=== PATIENT | female | born 1995 | race Caucasian/White ===

== ENCOUNTER 2023-06-03 13:48 | Emergency (ER) | payer OTHER ==
--- NOTE | 2023-06-03 14:06 | ED ---
Female Urogenital HPI - General Stated complaint: Vaginal bleeding Time Seen by Provider: 06/03/23 14:02 Source: patient, RN notes reviewed - History of Present Illness Initial comments: Quick noteis a 27-year-old female presents emergency department chief complaint of dysmenorrhea, pelvic pain and left-sided back pain. States that she has been on her menstrual cycle over the past 3 days and cycle has been more painful than normal. She denies dysuria, hematuria, increase in frequency and urgency. Patient denies chance of . States that she is not on any contraceptives. - Related Data Allergies Allergy/AdvReac Type Severity Reaction Status Date / Time No Known Allergies Allergy Verified 06/03/23 14:15 Review of Systems ROS Statement: Those systems with pertinent positive or pertinent negative responses have been documented in the HPI. ROS Other: All systems not noted in ROS Statement are negative. General Exam - General Exam Comments Initial Comments: Visual Physical Exam Vital signs reviewed General: Well-appearing, nontoxic, no acute distress. Head: Normocephalic, atraumatic Eyes: PERRLA, EOMI ENT: Airway patent Chest: Nonlabored breathing Skin: No visual rash, normal skin tone Neuro: Alert and oriented 3 Musculoskeletal: No gross abnormalities Able to determine full physical examination due to patient leaving AGAINST MEDICAL ADVICE. Course Vital Signs 06/03/23 06/03/23 14:15 17:01 Temperature 97 F L 97 F L Pulse Rate 64 64 Respiratory 18 18 Rate Blood Pressure 119/79 119/79 O2 Sat by Pulse 100 100 Oximetry Medical Decision Making - Medical Decision Making I completed the quick note portion of this chart signed Gloria Lim PA-C Unable to determine full medical course at this time due to patient leaving AGAINST MEDICAL ADVICE. Disposition Clinical Impression: Left against medical advice Disposition: LEFT AGAINST MEDICAL ADVICE Condition: Undetermined Referrals: None,Stated [Primary Care Provider] - 1-2 days
[2023-06-03 14:58] VITALS: BP 119/79; PULSE 64; RESP 18; TEMP 97
--- NOTE | 2023-06-03 16:03 | US ---
EXAMINATION TYPE: US pelvis complete transvag DATE OF EXAM: 06/03/2023 COMPARISON: NONE CLINICAL INDICATION: Female, 27 years old with history of dysmenorrhia, irregular menses; Left pelvic pain TECHNIQUE: Transvaginal ER exam Date of LMP: 05/31/2023 EXAM MEASUREMENTS: Uterus: 6.9 x 2.9 x 4.1 cm Endometrial Stripe: 0.7 cm Right Ovary: 2.7 x 2.1 x 2.5 cm Left Ovary: not seen 1. Uterus: mildly heterogeneous, multiple nabothian cyst 2. Endometrium: appears wnl 3. Right Ovary: 1.8cm dominant follicle 4. Left Ovary: not seen due to overlying bowel gas Spectral, color and waveform doppler imaging shows good arterial and venous flow within the right o vary; there is no evidence for ovarian torsion within the right ovary. 5.. Posterior cul-de-sac: wnl IMPRESSION: 1. Nonvisualization of the left ovary and adnexa secondary to bowel gas. 2. Normal uterus, endometrium and right ovary. 3. No free fluid within the cul-de-sac.
== END 2023-06-03 17:02 | disposition left against medical advice (07) ==
LOC: EC 13:48
DX: N93.9 Abnormal uterine and vaginal bleeding, unspecified (principal); Z53.29 Procedure and treatment not carried out because of patient's decision for other reasons
CPT/HCPCS: 76830; 93976; 99284

== ENCOUNTER 2023-12-03 23:48 | Emergency (ER) | payer OTHER ==
[2023-12-04] MEDS: SODIUM CHLORIDE 0.9% 1,000 ML IV STA (01:05)
[2023-12-04 01:06] LABS: Basophils % (A) 0 %; Eosinophils # (A) 0.1 k/uL (0-0.7); Eosinophils % (A) 1 %; HGB 13.5 gm/dL (11.4-16.0); Lymphocytes # (A) 3.3 k/uL (1.0-4.8); Lymphocytes % (A) 25 %; MCH 31.9 pg (25.0-35.0); MCHC 33.8 g/dL (31.0-37.0); MCV 94.4 fL (80.0-100.0); Monocytes # (A) 0.8 k/uL (0-1.0); Monocytes % (A) 6 %; Neutrophils # (A) 8.6 k/uL (1.3-7.7); Neutrophils % (A) 65 %; Platelet Count 271 k/uL (150-450); RBC 4.24 m/uL (3.80-5.40); RDW 12.1 % (11.5-15.5); WBC 13.2 k/uL (3.8-10.6)
--- NOTE | 2023-12-04 01:06 | ED ---
Abdominal Pain HPI - General Chief Complaint: Abdominal Pain Stated Complaint: Abd Pain Time Seen by Provider: 12/04/23 00:26 Source: patient Mode of arrival: ambulatory Limitations: no limitations - History of Present Illness Initial Comments: Patient is a pleasant 28-year-old female presenting today for right lower quadrant pain. 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 States that she feels "like it is pop rocks in her right lower quadrant. States she had cramps over the last week since she was on her period, and pain tonight is not similar to her usual menstrual cramps. First day of her last menstrual period was last Tuesday. States she did have darker blood than normal and had some brown vaginal discharge today but otherwise denies vaginal discharge or concerns for STIs. Endorses associated mild nausea but denies vomiting. States she does have a history of constipation to the point of requiring laxatives, last week she had such a difficult time having a bowel movement that it made her cry. Last BM today, black or bloody bowel movements. No prior abdominal surgeries. She is sexually active with a male partner. Took a test last week th at was negative. No pain medications prior to arrival however patient did attempt to smoke marijuana after the pain began that did not improve her symptoms. His dysuria urinary frequency or hematuria. Denies fevers or chills. Denies myalgias shortness of breath or chest pain. - Related Data Allergies Allergy/AdvReac Type Severity Reaction Status Date / Time No Known Allergies Allergy Verified 12/04/23 00:16 Review of Systems ROS Statement: Those systems with pertinent positive or pertinent negative responses have been documented in the HPI. ROS Other: All systems not noted in ROS Statement are negative. Past Medical History Past Medical History: No Reported History History of Any Multi-Drug Resistant Organisms: None Reported Past Surgical History: Tonsillectomy Past Psychological History: No Psychological Hx Reported Smoking Status: Never smoker Past Alcohol Use History: None Reported Past Drug Use History: Marijuana General Exam - General Exam Comments Initial Comments: PE: CONSTITUTIONAL: No apparent distress, well appearing SKIN: Warm, dry, no jaundice, hives or petechiae EYES: Pupils are equally round, extraocular movements intact without nystagmus, clear conjunctiva, non-icteric sclera HENT: Normocephalic, atraumatic, moist mucus membranes, oropharynx clear without exudates NECK: , Full range of motion, normal appearance PULMONARY: Clear to auscultation without wheezes, rhonchi, or rales, normal excursion, no accessory muscle use and no stridor CARDIOVASCULAR: Regular rate, rhythm, normal S1 and S2. No appreciated murmurs, rubs or gallops. Strong radial pulses with intact distal perfusion. No lower extremity edema GASTROINTESTINAL: Soft, active bowel sounds throughout, tenderness to palpation of the right lower quadrant, positive McBurney's point, non-distended, + rebound tenderness, guarding with palpation of the right lower quadrant, no palpable masses, . No hepatosplenomegaly GENITOURINARY: MUSCULOSKELETAL: Extremities have no gross deformity, no edema, redness, or swelling. No calf swelling NEUROLOGIC:_a/o x 3, GCS 15, normal mentation and speech. Moves all extremities x 4 without motor or sensory deficit PSYCHIATRIC:_normal mood and affect, thought process is clear and linear Limitations: no limitations Course Vital Signs 12/04/23 12/04/23 00:13 02:55 Temperature 98.0 F 97.9 F Pulse Rate 70 63 Respiratory 20 15 Rate Blood Pressure 137/80 106/59 O2 Sat by Pulse 100 99 Oximetry Medical Decision Making - Medical Decision Making Was pt. sent in by a medical professional or institution (CHIRAG Torres, HUMANITIES PROFESSOR, urgent care, hospital, or usp...) When possible be specific @ -No Did you speak to anyone other than the patient for history (EMS, parent, family, police, friend...)? What history was obtained from this source @ -No Did you review nursing and triage notes (agree or disagree)? Why? @ -I reviewed and agree with nursing and triage notes Were old charts reviewed (outside hosp., previous admission, EMS record, old EKG, old radiological studies, urgent care reports/EKG's, usp records)? Report findings @ -Medical records reviewed Differential Diagnosis (chest pain, altered mental status, abdominal pain women, abdominal pain men, vaginal bleeding, weakness, fever, dyspnea, syncope, headache, dizziness, GI bleed, back pain, seizure, CVA, palpatations, mental health, musculoskeletal)? @ -Differential Abdominal Pain Women: Appendicitis, Cholecystitis, diverticulosis, ischemic bowel, pancreatitis, hepatitis, UTI, gastroenteritis, AAA, incarcerated hernia, bowel obstruction, constipation, inflammatory bowel, hepatitis, peptic ulcer disease, splenic infarction, perforated viscus, vulvitis, ovarian torsion, PID, kidney stone, placenta abruption, this is not meant to be an all-inclusive list EKG interpreted by me (3pts min.). @ -As above X-rays interpreted by me (1pt min.). @ -None done CT interpreted by me (1pt min.). @ -None done U/S interpreted by me (1pt. min.). @ -Appendix does not appear enlarged or edematous What testing was considered but not performed or refused? (CT, X-rays, U/S, labs)? Why? @ -None What meds were considered but not given or refused? Why? @ -None Did you discuss the management of the patient with other professionals (professionals i.e. , PA, HUMANITIES PROFESSOR, lab, RT, psych nurse, adoption social worker, customer sales consultant, teacher, artillery officer, case management associate)? Give summary @ -No Was smoking cessation discussed for >3mins.? @ -No Was critical care preformed (if so, how long)? @ -No Were there social determinants of health that impacted care today? How? (Homelessness, low income, unemployed, alcoholism, drug addiction, transportation, low edu. Level, literacy, decrease access to med. care, retirement, rehab)? @ -No Was there de-escalation of care discussed even if they declined (Discuss DNR or withdrawal of care, Hospice)? @ -No What co-morbidities impacted this encounter? (DM, HTN, Smoking, COPD, CAD, Cancer, CVA, ARF, Chemo, Hep., AIDS, mental health diagnosis, sleep apnea, morb id obesity)? @ -None Was patient admitted / discharged? Hospital course, mention meds given and rout e, prescriptions, significant lab abnormalities, going to OR and other pertinent info. @ -Hospital course Patient is a pleasant 28-year-old female, previously healthy presenting for right lower quadrant pain x 1 evening. Physical exam performed significant for tenderness palpation of the right lower quadrant, positive McBurney sign, positive rebound tenderness, guarding with palpation of the right lower quadrant. + active bowel sounds. Discussed with patient plan for ultrasound pelvis and appendix. If significant lab abnormalities, pain is uncontrollable or concern for appendicitis remains after ultrasound we will consider CT abdomen pelvis with contrast. Patient is agreeable with plan. Additionally basic labs, IV fluids and pain control ordered Ultrasound showed cyst or follicle on the right ovary blood flow present to the right ovary, no evidence of torsion or free fluid. Appendix showed likely 3 mm appendix ("blind ending tubular structure likely representing the appendix" , lab significant for mild leukocytosis with blood to count 13.2. On my reassessment patient states her pain is unchanged however she is requesting to eat and would like to go home and go to sleep. She did decline pain control earlier and I again offered her pain medications however she politely declined. Updated patient to findings, including US of the appendix and that appendicits has not been completely ruled out. Discussed that CT would help further delineate signs of appendicitis however pt preferred discharge home with home monitoring of symptoms and return should symptoms persist or worsen. As US did appear to show the appendix and it did not show signs of appendicits, pt currently comfortable and wanting to go home and eat, I feel this is reasonable. Discussed with the patient signs symptoms monitor to monitor for warranting return to the emergency department. In my medical judgment there is currently no evidence of an immediate life- threatening or surgical condition. Discharge is therefore indicated at this time. Discharge treatment instructions, follow up instructions, and appropriate emergency department return precautions were discussed with the patient and/or m edical decision maker. Patient and/or medical decision maker expressed understanding of and agreed with the treatment plan, follow up instructions, and emergency department return precaution. All patient's and/or medical decision maker's questions were answered. The patient was advised that a small risk still exists that a serious condition could develop and was therefore instructed to return to the ED for any changes in symptoms, persistent symptoms, inability to obtain proper follow-up or for any further concerns. Patient received verbal and written instructions for this condition. Undiagnosed new problem with uncertain prognosis? @ -No Drug Therapy requiring intensive monitoring for toxicity (Heparin, Nitro, Insulin, Cardizem)? @ -No Were any procedures done? @ -No Diagnosis/symptom? @ -Right lower quadrant pain Acute, or Chronic, or Acute on Chronic? @ -Acute Uncomplicated (without systemic symptoms) or Complicated (systemic symptoms)? @ complicated Side effects of treatment? @ -No Exacerbation, Progression, or Severe Exacerbation? @ -No Poses a threat to life or bodily function? How? (Chest pain, [place], [place], pneumonia, PE, COPD, DKA, ARF, appy, cholecystitis, CVA, Diverticulitis, Homicidal, Suicidal, threat to staff... and all critical care pts) @ -Unlikely - Lab Data Result diagrams: 12/04/23 00:55 12/04/23 00:55 Lab Results 12/04/23 12/04/23 12/04/23 Range/Units 00:55 00:55 00:55 WBC 13.2 H (3.8-10.6) k/uL RBC 4.24 (3.80-5.40) m/uL Hgb 13.5 (11.4-16.0) gm/dL Hct 40.0 (34.0-46.0) % MCV 94.4 (80.0-100.0) fL MCH 31.9 (25.0-35.0) pg MCHC 33.8 (31.0-37.0) g/dL RDW 12.1 (11.5-15.5) % Plt Count 271 (150-450) k/uL MPV 7.0 Neutrophils % 65 % Lymphocytes % 25 % Monocytes % 6 % Eosinophils % 1 % Basophils % 0 % Neutrophils # 8.6 H (1.3-7.7) k/uL Lymphocytes # 3.3 (1.0-4.8) k/uL Monocytes # 0.8 (0-1.0) k/uL Eosinophils # 0.1 (0-0.7) k/uL Basophils # 0.0 (0-0.2) k/uL Sodium 138 (137-145) mmol/L Potassium 3.9 (3.5-5.1) mmol/L Chloride 106 (98-107) mmol/L Carbon Dioxide 23 (22-30) mmol/L Anion Gap 9 mmol/L BUN 10 (7-17) mg/dL Creatinine 0.72 (0.52-1.04) mg/dL Est GFR (CKD-EPI)AfAm >90 (>60 ml/min/1.73 sqM) Est GFR (CKD-EPI)NonAf >90 (>60 ml/min/1.73 sqM) Glucose 88 (74-99) mg/dL Plasma Lactic Acid Tristin (0.7-2.0) mmol/L Calcium 9.9 (8.4-10.2) mg/dL Total Bilirubin 0.6 (0.2-1.3) mg/dL AST 27 (14-36) U/L ALT 17 (4-34) U/L Alkaline Phosphatase 74 (38-126) U/L Total Protein 8.1 (6.3-8.2) g/dL Albumin 5.0 (3.5-5.0) g/dL Amylase 55 (30-110) U/L Lipase 103 (23-300) U/L HCG, Quant <2.4 mIU/mL Urine Color Colorless Urine Appearance Clear (Clear) Urine pH 5.5 (5.0-8.0) Ur Specific [place] 1.004 (1.001-1.035) Urine Protein Negative (Negative) Urine Glucose (UA) Negative (Negative) Urine Ketones Negative (Negative) Urine Blood Small H (Negative) Urine Nitrite Negative (Negative) Urine Bilirubin Negative (Negative) Urine Urobilinogen <2.0 (<2.0) mg/dL Ur Leukocyte Esterase Negative (Negative) Urine RBC <1 (0-5) /hpf Urine WBC 1 (0-5) /hpf Ur Squamous Epith Cells 1 (0-4) /hpf 12/04/23 Range/Units 00:55 WBC (3.8-10.6) k/uL RBC (3.80-5.40) m/uL Hgb (11.4-16.0) gm/dL Hct (34.0-46.0) % MCV (80.0-100.0) fL MCH (25.0-35.0) pg MCHC (31.0-37.0) g/dL RDW (11.5-15.5) % Plt Count (150-450) k/uL MPV Neutrophils % % Lymphocytes % % Monocytes % % Eosinophils % % Basophils % % Neutrophils # (1.3-7.7) k/uL Lymphocytes # (1.0-4.8) k/uL Monocytes # (0-1.0) k/uL Eosinophils # (0-0.7) k/uL Basophils # (0-0.2) k/uL Sodium (137-145) mmol/L Potassium (3.5-5.1) mmol/L Chloride (98-107) mmol/L Carbon Dioxide (22-30) mmol/L Anion Gap mmol/L BUN (7-17) mg/dL Creatinine (0.52-1.04) mg/dL Est GFR (CKD-EPI)AfAm (>60 ml/min/1.73 sqM) Est GFR (CKD-EPI)NonAf (>60 ml/min/1.73 sqM) Glucose (74-99) mg/dL Plasma Lactic Acid [place]ist[place] 0.6 L (0.7-2.0) mmol/L Calcium (8.4-10.2) mg/dL Total Bilirubin (0.2-1.3) mg/dL AST (14-36) U/L ALT (4-34) U/L Alkaline Phosphatase (38-126) U/L Total Protein (6.3-8.2) g/dL Albumin (3.5-5.0) g/dL Amylase (30-110) U/L Lipase (23-300) U/L HCG, Quant mIU/mL Urine Color Urine Appearance (Clear) Urine pH (5.0-8.0) Ur Specific [place] (1.001-1.035) Urine Protein (Negative) Urine Glucose (UA) (Negative) Urine Ketones (Negative) Urine Blood (Negative) Urine Nitrite (Negative) Urine Bilirubin (Negative) Urine Urobilinogen (<2.0) mg/dL Ur Leukocyte Esterase (Negative) Urine RBC (0-5) /hpf Urine WBC (0-5) /hpf Ur Squamous Epith Cells (0-4) /hpf Disposition Clinical Impression: Right lower quadrant pain Disposition: HOME SELF-CARE Condition: Good Instructions (If sedation given, give patient instructions): Abdominal Pain (ED) Additional Instructions: Every disease is a spectrum and a small chance still exists that a serious condition could develop, for this reason, please monitor yourself closely for new, changing or worsening symptoms, symptoms that persist beyond 48 hours, unable to control pain at home, failure pain to improve in the next 24 hours, nausea and vomiting, lightheadedness or dizziness or feeling like you are going to pass out,, fever, inability to tolerate/keep down fluids or your medications, inability to follow up with outpatient providers as instructed and should you experience these symptoms or should you have any further concerns for your wellbeing please return to the ED or call 911 immediately. PLEASE call your primary care physician as soon as possible to arrange / discuss plan for followup appointment. Appointment in the next 1-3 days is strongly encouraged if possible. PLEASE let us know here before you leave if there is anything further we can do to be of any assistance. Take care and feel Better! Is patient prescribed a controlled substance at d/c from ED?: No Referrals: None,Stated [Primary Care Provider] - 1-2 days
[2023-12-04 01:22] LABS: ALT 17 U/L (4-34); AST 27 U/L (14-36); African American GFR (CKD) >90 (>60 ml/min/1.73 sqM); Alkaline Phosphatase 74 U/L (38-126); Amylase 55 U/L (30-110); Anion Gap 9 mmol/L; Appearance,Urine Clear (Clear); Bilirubin,Urine Negative (Negative); Blood Urea Nitrogen 10 mg/dL (7-17); Blood,Urine Small (Negative); Calcium 9.9 mg/dL (8.4-10.2); Carbon Dioxide 23 mmol/L (22-30); Chloride 106 mmol/L (98-107); Color,Urine Colorless; Glucose 88 mg/dL (74-99); Glucose,Urine (UA) Negative (Negative); Ketones,Urine Negative (Negative); Leukocyte Esterase,Urine Negative (Negative); Lipase 103 U/L (23-300); Nitrite,Urine Negative (Negative); Non-African American GFR(CKD) >90 (>60 ml/min/1.73 sqM); PH, Urine 5.5 (5.0-8.0); Potassium 3.9 mmol/L (3.5-5.1); Protein,Urine Negative (Negative); RBC,Urine <1 /hpf (0-5); Sodium 138 mmol/L (137-145); Specific Gravity,Urine 1.004 (1.001-1.035); Squamous Epithelial Cell,Urine 1 /hpf (0-4); Total Bilirubin 0.6 mg/dL (0.2-1.3); Total Protein 8.1 g/dL (6.3-8.2); Urobilinogen,Urine <2.0 mg/dL (<2.0); WBC,Urine 1 /hpf (0-5)
[2023-12-04 01:38] LABS: HCG,Quantitative Serum <2.4 mIU/mL
--- NOTE | 2023-12-04 02:53 | US ---
EXAM: US Pelvis Transabdominal, Complete CLINICAL HISTORY: US Reason: RLQ pain, torsion? TECHNIQUE: Real-time complete transabdominal pelvic ultrasound with image documentation. COMPARISON: No relevant prior studies available. FINDINGS: Uterus/cervix: The uterus measures 7.9 x 2.9 x 4.3 cm, 51.2 mL and is anteverted. The myometrium is unremarkable. The endometrial stripe is normal measuring 4 mm. Right ovary: The right ovary measures 3.7 x 2.1 x 2.8 cm, 11.3 mL with a 2.3 x 2.7 cm cyst or follicle within it. Doppler blood flow is normal. Left ovary: The left ovary measures 2.5 x 1.2 x 1.3 cm with normal Doppler blood flow. Free fluid: No free fluid is seen. Bladder: Unremarkable as visualized. Wall is normal thickness for degree of distention. IMPRESSION: Cysts or follicles in the right ovary measuring up to 2.7 cm. No evidence of torsion. No free fluid is seen.
[2023-12-04 02:58] VITALS: BP 106/59; PULSE 63; RESP 15; TEMP 97.9
[2023-12-04] MEDS: ONDANSETRON 4 MG/2 ML VIAL IVP STA (03:00)
[2023-12-04] MEDS: KETOROLAC 15 MG/ML 1 ML VIAL IVP STA (03:00)
--- NOTE | 2023-12-04 03:08 | US ---
EXAM: US Abdomen Limited, Appendix CLINICAL HISTORY: US Reason: RLQ TTP TECHNIQUE: Real-time ultrasound of the right lower quadrant with image documentation. COMPARISON: No relevant prior studies available. FINDINGS: Appendix: There is a blind-ending tubular structure, likely representing the appendix measuring 3 mm in diameter without signs of surrounding inflammation or free fluid. Free fluid: See above. IMPRESSION: There is a blind-ending tubular structure, likely representing the appendix measuring 3 mm in diameter without signs of surrounding inflammation or free fluid.
== END 2023-12-04 03:31 | disposition home or self-care (01) ==
LOC: EC 23:48
DX: N89.8 Other specified noninflammatory disorders of vagina (principal); Z90.89 Acquired absence of other organs
CPT/HCPCS: 36415; 76705; 76856; 80053; 81001; 82150; 83605; 83690; 84702; 85025; 93975; 96360; 99284